=== PATIENT | female | born 1955 | race Caucasian/White ===

== ENCOUNTER → 2017-10-06 | Outpatient (CLI) | payer OTHER ==
[~2017-10-06] MED LIST: AMITRIPTYLINE 225 MG PO; AMLODIPINE BES2.5 MG PO; ATORVASTATIN CA20 MG PO; CYMBALTA60 MG PO; LORTAB ELIXIR473 ML PO; LOSARTAN POTASS25 MG PO; LYRICA 100 MG100 MG PO; PREDNISONE 1MG.1 MG
--- NOTE | 2017-10-06 11:31 | RADIOLOGY REPORT PS360 ---
CHEST(2 VIEWS-NOT PORTABLE) HISTORY: FEVER,COUGH,SOA ORDERING PHYSICIAN: Wero Francois MD PATIENT AGE: 62 years COMPARISON: 06/08/2017 FINDINGS: The cardiomediastinal silhouette and pulmonary vascularity are within normal limits. There are atelectatic changes in the right middle lobe which is developed since the previous exam. No lobar consolidation or collapse. There is a bone plate along the lower cervical spine at the cervicothoracic junction. No acute bony abnormalities. IMPRESSION: Right middle lobe atelectasis
== END ==
LOC: RAD 11:08
DX: R50.9 Fever, unspecified (principal); R05 Cough; R06.02 Shortness of breath